=== PATIENT | male | born 1990 | race American Indian/Alaskan Native ===

== ENCOUNTER 2021-10-09 06:49 | Emergency (ER) | payer MEDICAID ==
[~2021-10-09] VITALS: Ht 182.9 cm; Wt 79.5 kg
[2021-10-09 06:50] VITALS: BP 135/73
== END 2021-10-09 07:56 | disposition home or self-care (01) ==
LOC: EMS 06:54
DX: S31.119D Laceration without foreign body of abdominal wall, unspecified quadrant without penetration into peritoneal cavity, subsequent encounter (principal); Z48.02 Encounter for removal of sutures; F17.290 Nicotine dependence, other tobacco product, uncomplicated; W26.0XXD Contact with knife, subsequent encounter
CPT/HCPCS: 99281; Z7502